=== PATIENT | female | born 1955 | race Caucasian/White ===

== ENCOUNTER 2020-03-21 12:41 | Emergency (ER) | payer BC, SELFPAY ==
[2020-03-21 12:43] VITALS: BP 107/69; PULSE 87; RESP 14; TEMP 36.4; O2SAT 98; BMI 15.7
--- NOTE | 2020-03-21 12:53 | EKG12_ITS ---
Test Reason : Blood Pressure : / mmHG Vent. Rate : 083 BPM Atrial Rate : 083 BPM P-R Int : 144 ms QRS Dur : 064 ms QT Int : 332 ms P-R-T Axes : 015 -31 059 degrees QTc Int : 390 ms Normal sinus rhythm Left axis deviation Inferior infarct , age undetermined Cannot rule out Anterior infarct , age undetermined Abnormal ECG Confirmed by BULMARO SPANGLER, ONEIDA ([id number]), editor trade journal MARLEE DIAZ ([id number]) on 03/25/2020 11:32:48 AM Referred By: RATNA Confirmed By:ONEIDA CHAMBERLAIN MD
--- NOTE | 2020-03-21 13:22 | ED.DCSUM_ITS ---
History of Present Illness Chief Complaint: General Illness Informant: Family Onset: Month(s) Maximum Severity: Mild Narrative: The patient is here with the daughter the patient has history of profound schizophrenia UTI diet-controlled diabetes per the daughter the patient's urine has been very strong malodorous she is concerned she has a UTI, In addition the patient is seen by psychiatry related schizophrenia, she is seen by nephrology related to poor kidney function and the daughter reports for months the schizophrenia has been hard to control as the renal function limits the options related to medical management of schizophrenia. The patient's had slightly poor p.o. intake she has outbursts where she seems to hallucinate see things on the TV that are not there to see things in the rooms or not there this is a chronic condition that appears slightly worse since the malodorous urine was identified by family. The patient is alert to her name her daughter [facility] and the fact that she lives locally the patient has no specific complaints when questioned and is alert finding when questioned and looking around the room moving all 4 extremities Past Medical History - Allergies and Home Meds Allergies/Adverse Reactions: Allergies pineapple [Pineapple] Allergy (Verified 12/01/13 01:00) Hives risperidone [From Risperdal] Allergy (Verified 11/30/13 16:42) Rash Sulfa (Sulfonamide Antibiotics) Allergy (Verified 11/30/13 16:42) Other sulfamethoxazole [From Bactrim] Allergy (Verified 11/30/13 16:42) Other trimethoprim [From Bactrim] Allergy (Verified 11/30/13 16:42) Other Primary Care Physician: Arjun Veliz MD [Primary Care Provider] - Past Medical History: - - Schizophrenia renal disease diet-controlled diabetes no history of [place] stroke seizure Surgical History: appendectomy, cholecystectomy, hysterectomy, - - 5 C-sections, 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 Denies: Headache, Weakness, Numbness Physical Exam Vital Signs/Narrative: Vital Signs Temp Pulse Resp BP Pulse Ox 03/21/20 12:43 97.5 F L 87 14 107/69 98 General: Well nourished, Well developed, No Acute Distress Head: Normocephalic, Atraumatic Eyes: Perrl, EOMI ENT: Moist mucous membranes, No rhinorrhea Neck: Supple, Nontender Cardiovascular: Regular rate, Regular rhythm, No murmurs Respiratory: No distress, CTA bilaterally, Chest nontender Abdomen: Soft, Nontender, Nondistended, Normal bowel sounds Back: Nontender, Normal Inspection Extremities: Nontender, No edema Skin: Normal color, No rash Neurological: Alert, Oriented x3, Cranial nerves II-XII grossly intact, Normal Strength, Normal Sensation Psychological: Depressed Diagnostic/Tx/Re-eval - Medical Decision Making Patient's vital signs are unremarkable she is resting comfortably in the bed she answers questions appropriately she has no specific complaints the daughter is concerned that the patient is developed UTI which is exacerbating her schizophrenia, given all the above screening ED evaluation Patient's ED screening evaluation was generally unremarkable except the UA did show some signs of UTI, urine culture sent, patient with IV fluids bolus, IV Rocephin, allergy profile reviewed, she will be started on Keflex discussed all the above with the daughter they are comfortable for discharge home they understand that basically her kidney function appears stable right now and there needs to be ongoing management with her outpatient providers related to the UTI her schizophrenia and her renal function and she will follow-up with outpatient providers to have all that accomplished patient is hemodynamically stable she is at her baseline and they are comfortable discharge home Home stable\ Final impression urinary tract infection, schizophrenia, history of renal insufficiency ED Disposition - Plan for ED Patient: Diagnosis: UTI (urinary tract infection) Instructions: Antibiotics When to Use, ED CYSTITIS Female Adult Prescriptions: Cephalexin [Keflex] 500 mg PO 4X/DAY #30 cap Prescription Printed Referrals: Arjun Veliz MD [Primary Care Provider] -
[2020-03-21] MEDS: 0.9% Normal Saline 1,000 ML 125 ML IV (13:25)
[2020-03-21 13:41] LABS: Bacteria 0 SEEN /hpf (None Seen); Mucous, Urine 0 SEEN /hpf (<or=2+); Red Blood Cells-Urine 0 SEEN /hpf (0-5); Squamous Epithelial Cells - UA 0 SEEN /hpf (5-10); White Blood Cells 0 SEEN /hpf (0-5)
[2020-03-21 13:45] LABS: Absolute Lymphocyte Count 1.18 X10^3/uL (0.83-4.51); Absolute Neutrophil Count 7.5 X10^3/uL (2.0-7.7); Basophil# 0.05 X10^3/uL; Basophil% 0.5 % (0-1); Eosinophil# 0.12 X10^3/uL; Eosinophils% 1.3 % (0-5); Hemoglobin 12.5 g/dL (12.0-15.0); Lymphocyte # 1.18 X10^3/ul (4.0); Lymphocyte % 12.5 % (19-41); Mean Corp Hgb Conc 32.9 g/dL (32-36); Mean Corpuscular Volume 91.3 fL (81-99); Monocyte# 0.53 X10^3/uL; Monocyte% 5.6 % (0-10); NRBC Flagged by Analyzer 0 % (0-5); Neutrophil # 7.51 X10^3/uL (2.7-7.7); Neutrophil % 79.8 % (47-70); Platelet Count 200 K/mm3 (150-450); RBC Distribution Width CV 13.2 % (11.6-14.6); Red Blood Count 4.16 M/mm3 (4.2-5.4); White Blood Count 9.4 K/mm3 (4.4-11.0)
[2020-03-21 13:47] LABS: Color, Urine Yellow (Yellow); Glucose, Dipstick 1000 mg/dl (Normal); Ketone-Dipstick 5 mg/dl (Negative); Leukocyte Esterase-Dipstick 25 /ul (Negative); Nitrite-Dipstick Negative (Negative); Occult Blood-Urine Negative /ul (Negative); Protein-Dipstick 30 mg/dl (Negative); Urine Bilirubin Dipstick Negative (Negative); Urine Clarity Clear (Clear); Urine Urobilinogen Normal (Normal)
[2020-03-21 14:04] LABS: ALB/GLOB Ratio 0.8 RATIO (0.9-2.4); AST(SGOT) 17 U/L (15-37); Alanine Aminotransfer ALT/SGPT 21 U/L (13-56); Alkaline Phosphatase 105 U/L (45-117); Anion Gap 6 (5-15); BUN 16 mg/dL (7-18); BUN/Creat Ratio 12.1 RATIO (10-20); Calcium,Total 9.2 mg/dL (8.5-10.1); Chloride 100 mmol/L (98-107); Creatinine, Serum 1.32 mg/dL (0.55-1.02); EST Glomerular Filtration Rate 43 mL/min (>60); Est Glom Filt Rate - Afr Amer 52 mL/min (>60); Estimated Creatinine Clearance 33.91 ml/min; Globulin 3.7 g/dL (2.2-4.2); Glucose 257 mg/dL (74-106); Lipase 120 U/L (73-393); Potassium 4.1 mmol/L (3.5-5.1); Protein, Total 6.7 g/dL (6.4-8.2); Sodium Level 136 mmol/L (136-145)
[2020-03-21 14:04] LABS: Ammonia < 10.0 umol/L (11-32)
[2020-03-21 14:42] VITALS: BP 115/87; PULSE 82; RESP 18; O2SAT 98
[2020-03-21] MEDS: Ceftriaxone 1 GM/50 ML BAG IV (14:50)
== END 2020-03-21 15:26 | disposition home or self-care (01) ==
PROVIDERS: Emergency Provider Emergency Medicine; PCP Family Medicine
DX: N39.0 Urinary tract infection, site not specified (principal); F20.9 Schizophrenia, unspecified; E11.9 Type 2 diabetes mellitus without complications; N28.9 Disorder of kidney and ureter, unspecified; Z79.899 Other long term (current) drug therapy
CPT/HCPCS: 80053; 81001; 82009; 82140; 83690; 84484; 85025; 87086; 93005; 96361; 96365; 99283; J7030; A4216

== ENCOUNTER → 2022-04-07 | Outpatient (CLI) | payer MEDICARE, OTHER, SELFPAY ==
[2022-04-07 10:06] LABS: Bacteria 0 SEEN /hpf (None Seen); Mucous, Urine 0 SEEN /hpf (<or=2+); Red Blood Cells-Urine 0 SEEN /hpf (0-5)
[2022-04-07 12:45] LABS: Color, Urine Yellow (Yellow); Glucose, Dipstick Normal (Normal); Ketone-Dipstick Negative (Negative); Leukocyte Esterase-Dipstick 25 /ul (Negative); Nitrite-Dipstick Negative (Negative); Occult Blood-Urine Negative /ul (Negative); Protein-Dipstick Negative (Negative); Specific Gravity, Urine 1.005 (1.002-1.030); Urine Bilirubin Dipstick Negative (Negative); Urine Clarity Sl. Cloudy (Clear); Urine Urobilinogen Normal (Normal)
[2022-04-07 12:52] LABS: Squamous Epithelial Cells - UA 0-5 SEEN /hpf (5-10); White Blood Cells 0-5 SEEN /hpf (0-5)
== END | disposition home or self-care (01) ==
LOC: LABSPEC 10:06
PROVIDERS: PCP Family Medicine; Visit Provider Internal Medicine Nephrology
DX: E11.9 Type 2 diabetes mellitus without complications (principal)
CPT/HCPCS: 81001